=== PATIENT | female | born 1940 | race African-American/Black ===

== ENCOUNTER → 2017-02-14 | Outpatient (CLI) | payer OTHER ==
--- NOTE | ~2017-02-14 | US77 ---
[facility] A Service [facility] RADIOLOGY TEXT RESULTS PATIENT: WILNER GROSSMAN LOCATION: [facility] : 42 UNIT #: [id number] AGE: [address]: Godwin Penn MD SEX: F ORDER DR: [id number] [facility] [address] [place], [place] [address] [id number] O MR#: [id number] Acc #: [id number] NAME: WILNER GROSSMAN : 1940 SEX: F STUDY DATE/TIME: 02/14/2017 12:45 UNIT: US ROOM: STUDY DESCRIPTION: US Kidney Bilateral Complete Attending Physician: Godwin Penn M.D. Referring Physician: Godwin Penn M.D. Ordering Physician: Godwin Penn M.D. Primary Care Physician: Rosendo Daniel M.D. MEDICAL IMAGING REPORT This report is preliminary unless electronic signature is present EXAM Renal ultrasound INDICATIONS Stage II chronic kidney disease. PROCEDURE Weaver-scale, Doppler imaging kidneys and bladder. COMPARISON None FINDINGS Right kidney measures 9.7 cm. Left kidney measures 11.4 cm. Cortical thickness lower limits of normal. No hydronephrosis. Bladder decompressed. IMPRESSION Cortical thickness is lower limits of normal. Otherwise, negative renal ultrasound. Dictated by... Amol Morley M.D. THIS IS AN ELECTRONICALLY VERIFIED REPORT Amol Morley M.D. at 02/15/2017 7:35 AM EED/psc TD: 02/14/2017 22:44 JOB #: [id number] MEDICAL IMAGING REPORT [facility] A Service [facility] RADIOLOGY TEXT RESULTS PATIENT: WILNER GROSSMAN LOCATION: [facility] : 42 UNIT #: [id number] AGE: [address]: Godwin Penn MD SEX: F ORDER DR: Page 1 of 1 COPY
[2017-02-14 12:30] LABS: BASOPHIL# 0.1 X10e3 (0-0.3); BASOPHIL% 0.9 % (0-2.5); DIFF IND NO; EOSINOPHIL# 0.1 X10e3 (0-0.7); EOSINOPHIL% 1.4 % (0.0-7.0); HEMATOCRIT 39.8 % (35.0-45.0); HEMOGLOBIN 13.3 gm/dL (12.0-16.0); LYMPHOCYTE# 2.3 X10e3 (1.0-3.5); LYMPHOCYTE% 29.5 % (17.0-45.0); MEAN CELL VOLUME 87.3 FL (83-96); MEAN CORPUSCULAR HEMOGLOBIN 29.2 PG (28-34); MEAN CORPUSCULAR HGB CONC 33.4 g/dL (30-36); MONOCYTE# 0.4 X10e3 (0-1.0); MONOCYTE% 5.3 % (3.0-12.0); NEUTROPHIL% 62.9 % (40-75); PLATELET COUNT 311 X10e3 (140-420); RED BLOOD COUNT 4.57 X10e (3.90-5.30); RED CELL DISTRIBUTION WIDTH 13.8 % (11.0-15.5); WHITE BLOOD COUNT 7.9 X10e3 (4.0-10.5)
[2017-02-14 12:54] LABS: ALBUMIN SERUM 4.2 g/dL (3.5-5.0); BILIRUBIN,TOTAL 0.7 mg/dL (0.2-2.0); BUN/CREATININE RATIO 19.09; CALCIUM SERUM 10.2 mg/dL (8.4-10.2); CREATININE SERUM 1.1 mg/dL (0.6-1.4); GLOM FILT RATE Estimated 56.9 mL/min (>60); POTASSIUM 4.4 mmol/L (3.5-5.1); PROTEIN TOTAL SERUM 7.6 g/dL (6.0-8.3)
[2017-02-14 13:05] LABS: URINE APPEARANCE CLEAR; URINE BILIRUBIN NEG (NEG); URINE BLOOD NEG (NEG); URINE COLOR YELLOW; URINE GLUCOSE 100 MG/DL (NEG); URINE KETONE NEG (NEG); URINE LEUKOCYTE ESTERASE NEG (NEG); URINE NITRATE NEG (NEG); URINE PROTEIN NEG (NEG)
[2017-02-14 13:23] LABS: CREATININE,RANDOM URINE 231 mg/dL; TOTAL PROTEIN,RANDOM URINE 11 mg/dl (<10)
== END | disposition home or self-care (01) ==
LOC: CGUS 11:51 → CLAB 11:51 → CGUS 12:45
PROVIDERS: Internal Medicine Nephrology
DX: N18.2 Chronic kidney disease, stage 2 (mild) (principal)
CPT/HCPCS: 36415; 76770; 80053; 81003; 82570; 84156; 85025